=== PATIENT | female | born 1950 | race Caucasian/White ===

== ENCOUNTER 2016-12-07 22:48 | Emergency (ER) | payer OTHER ==
[~2016-12-07] VITALS: Ht 157.5 cm; Wt 64.8 kg
[2016-12-07 23:01] VITALS: BP 146/83; PULSE 77; RESP 18; TEMP 98.3; O2SAT 97
[2016-12-07] MEDS ORDERED: LIVA2TAB PO (23:10)
[2016-12-07] MEDS ORDERED: OMEP20TA PO (23:10)
[2016-12-07] MEDS ORDERED: LEVO50TA4 PO (23:10)
[2016-12-07] MEDS ORDERED: METF500T PO (23:10)
[2016-12-07] MEDS ORDERED: TRIA37.5 PO (23:10)
[2016-12-07] MEDS ORDERED: ALLO300T2 PO (23:10)
--- NOTE | 2016-12-07 23:20 | PD ---
HPI . Right eye pain Chief Complaint: Eye Problems/Injury Time Seen by Provider: 23:12 Travel History International Travel<30 days: No Contact w/Intl Traveler<30days: No Traveled to known affect area: No History of Present Illness HPI Patient presents stating that she inadvertently placed eardrops into her right eye. She reports that she uses lubricating eyedrops nightly. She inadvertently used her eardrops tonight. She comes in complaining with some right eye irritation. [facility], [facility] Past Medical History High Cholesterol: Yes Diabetes: Yes (TYPE 2) Patient Takes Glucophage: Yes ([id number]) Diminished Hearing: No Deep Vein Thrombosis: Yes (PAST WITH PE) GERD: Yes Gout: Yes Hypertension: Yes Immunizations Current: Yes Thyroid Disease: Yes Tetanus Vaccination: < 5 Years Influenza Vaccination: Yes ?: Not Past Surgical History Eye Surgery: Yes Hysterectomy: Yes Tonsillectomy: Yes Other Surgery: Yes (THYROID) Social History Alcohol Use: No Tobacco Use: No Substance Use: No Allergies-Medications (Allergen,Severity, Reaction): Coded Allergies: No Known Allergies (Unverified , 12/07/16) Reported Meds & Prescriptions Reported Meds & Active Scripts Active Reported Levothyroxine (Levothyroxine Sodium) 50 Mcg Tab 50 Mcg PO DAILY Allopurinol 300 Mg Tab 300 Mg PO DAILY Omeprazole 20 Mg Tab 20 Mg PO DAILY Metformin (Metformin HCl) 500 Mg Tab 500 Mg PO DAILY With a meal Triamterene-Hydrochlorothiazide 37.5-25 Mg Tab 1 Tab PO DAILY Livalo (Pitavastatin) 2 Mg Tab 2 Mg PO DAILY Review of Systems Except as stated in HPI: all other systems reviewed are Neg Eyes: Positive: Blurred Vision, Pain Physical Exam Narrative GENERAL: Healthy-appearing woman who is in no acute distress SKIN: Warm and dry. HEAD: Atraumatic. Normocephalic. EYES: Pupils equal and round. Mild conjunctival injection of the right eye. ENT: No nasal bleeding or discharge. NECK: Trachea midline. Neck is supple. CARDIOVASCULAR: Regular rate and rhythm. RESPIRATORY: No accessory muscle use. MUSCULOSKELETAL: No obvious deformities. No edema. NEUROLOGICAL: Awake and alert. No obvious cranial nerve deficits. Motor grossly within normal limits. Normal speech. PSYCHIATRIC: Appropriate mood and affect; insight and judgment normal. Data Data Last Documented VS Vital Signs Date Time Temp Pulse Resp B/P Pulse Ox O2 Delivery O2 Flow Rate FiO2 12/07/16 23:01 98.3 77 18 146/83 97 Orders ^ Irrigate (12/07/16 23:15) Proparacaine 0.5% Opth Soln (Alcaine 0.5 (12/07/16 23:30) Gentamicin 0.3% Opht Oint (Gentamicin 0. (12/08/16 09:00) MDM Medical Decision Making Medical Screen Exam Complete: Yes Emergency Medical Condition: Yes Differential Diagnosis Differential diagnosis includes chemical conjunctivitis, acidic or alkaline burn of the cornea. Narrative Course Patient presents with right eye irritation after inadvertently instilling eardrops into her eye. We will start with irrigation. I will consult up-to-date for further advice. It does not come up in UpToDate. We will contact Poison Control. Poison control recommended irrigation. 12:25 AM The patient's treatment has been delayed as we have had a patient in the emergency department who was actively dying. Diagnosis Primary Impression: Chemical conjunctivitis of right eye Disposition: DISCHARGE HOME Condition: Stable Alanna Gonsalves MD Dec 07, 2016 23:20
[2016-12-07] MEDS ORDERED: PROPARACAINE HCL 0.5% OPHT SOLN 15 ML BTL RIGHT EYE ONE (23:30)
[2016-12-08] MEDS ORDERED: GENTAMICIN SULFATE 0.3% OPHT OINT 3.5 GM TUBE RIGHT EYE SCH ×2 (01:00→09:00)
== END 2016-12-08 01:05 | disposition home or self-care (01) ==
LOC: PHEFT 22:48
DX: H10.211 Acute toxic conjunctivitis, right eye (principal); E78.00 Pure hypercholesterolemia, unspecified; E11.9 Type 2 diabetes mellitus without complications; I10 Essential (primary) hypertension; E07.9 Disorder of thyroid, unspecified
CPT/HCPCS: 99283